=== PATIENT | male | born 1960 | race Caucasian/White ===

== ENCOUNTER 2016-12-14 09:51 | Day surgery (SDC) | payer BC ==
[2016-12-11 14:17] VITALS: BMI 30.1
[2016-12-14] MEDS ORDERED: ETOMIDATE 20 MG/10 ML AMPUL IVPUSH ONE (11:43)
[2016-12-14 12:26] LABS: MCH 30.1 pg (25.7-33.7); MEAN CELL VOLUME 91.2 fl (80-96); MEAN PLT VOLUME 8.9 fl (7.5-11.1); PLATELET COUNT 272 K/MM3 (134-434); RDW 12.6 % (11.9-15.9); WHITE BLOOD COUNT 7.8 K/mm3 (4.0-10.0)
[2016-12-14 12:45] LABS: CO2 26 mmol/L (21-32); CREATININE 1.1 mg/dL (0.7-1.3); GLUCOSE,RANDOM 96 mg/dL (74-106)
[2016-12-14 12:46] LABS: ALBUMIN 3.8 g/dl (3.4-5.0); ALK PHOS 92 U/L (45-117); ANION GAP 12 (8-16); BILIRUBIN,TOTAL 0.7 mg/dL (0.2-1.0); CALCIUM 8.9 mg/dL (8.5-10.1); SGOT/AST 38 U/L (15-37); SGPT/ALT 58 U/L (12-78); TOT PROT 7.5 g/dl (6.4-8.2)
[2016-12-14] MEDS ORDERED: LIDOCAINE VISCOUS 2% ORAL/TOP 100 ML BOTTLE MM ONE (13:00)
[2016-12-14 13:34] VITALS: TEMP 97.4
[2016-12-14 14:19] VITALS: BP 115/80; PULSE 78
--- NOTE | 2016-12-15 00:21 | EKG ---
Test Reason : Blood Pressure : / mmHG Vent. Rate : 074 BPM Atrial Rate : 074 BPM P-R Int : 192 ms QRS Dur : 096 ms QT Int : 392 ms P-R-T Axes : 058 025 053 degrees QTc Int : 435 ms NORMAL SINUS RHYTHM NORMAL ECG NO PREVIOUS ECGS AVAILABLE Confirmed by THANH RIOS MD ([id number]) on 12/15/2016 12:20:46 AM Referred By: Thanh Rios Confirmed By:THANH RIOS MD
== END 2016-12-14 14:17 | disposition home or self-care (01) ==
LOC: JASU-ENDO 09:51 → JOR 09:51 → JASU-ENDO 14:17
PROVIDERS: ATTEND Internal Medicine Cardiovascular Disease
PROC: 5A2204Z Restoration of Cardiac Rhythm, Single (ICD-10-PCS; 2016-12-14)
PROC: B246ZZ4 Ultrasonography of Right and Left Heart, Transesophageal (ICD-10-PCS; principal; 2016-12-14 11:30)
DX: I48.91 Unspecified atrial fibrillation (principal)
CPT/HCPCS: 36415; 80053; 85027; 92960; 93005; 93010; 93312; 93325